=== PATIENT | female | born 1955 | race Caucasian/White ===

== ENCOUNTER 2021-02-07 02:04 | Day surgery (SDC) | payer MEDICARE, SELFPAY ==
[2021-01-28 15:07] VITALS: BMI 46.9
[2021-02-07 06:55] VITALS: BP 158/92; PULSE 79; RESP 18; TEMP 36.2; O2SAT 99; BMI 47.2
[2021-02-07] MEDS: LACTATED RINGERS 1,000 ML 150 ML IV CONT (07:31)
[2021-02-07 07:32] LABS: Glucose Point of Care 108 mg/dl (65-105)
--- NOTE | 2021-02-07 08:08 | WPDANESEPPF ---
Anes - Initial Pre Proc Eval Procedure: Operation Date: 02/07/21 08:00 Proposed Procedures p Colonoscopy - Adeel Murillo DO Date/Time: 02/07/21 08:08 Surgeon: Adeel Murillo DO Pre Op Diagnosis: positive hemasure Patient Data Age: 65 Gender: F Height: 1.52 m Weight: 109.7 kg Last Vital Signs Temp 36.2 C L 02/07/21 06:55 Pulse 79 02/07/21 06:55 Resp 18 02/07/21 06:55 BP 158/92 H 02/07/21 06:55 Pulse Ox 99 02/07/21 06:55 Allergies Allergy/AdvReac Type Severity Reaction Status Date / Time codeine Allergy Intermediate Vomiting Verified 02/07/21 07:09 Home Medications Medication Instructions Recorded Confirmed Type aspirin 81 mg tablet,delayed 81 mg PO DAILY 09/29/19 02/07/21 History release betamethasone dipropionate 0.05 % 1 applic TOPICAL DAILY 09/29/19 02/07/21 History topical cream hydrochlorothiazide 25 mg tablet 25 mg PO DAILY 09/29/19 02/07/21 History metformin 500 mg tablet 500 mg PO BID 09/29/19 02/07/21 History multivitamin 1 cap PO DAILY 09/29/19 02/07/21 History omega-3s 600 sw-cmw-wax-other 1 cap PO DAILY 09/29/19 02/07/21 History [id number] oil 1,200 mg capsule omeprazole 40 mg capsule,delayed 40 mg PO DAILY cap 09/29/19 02/07/21 History release propranolol 80 mg tablet 80 mg PO Q12H 09/29/19 02/07/21 History cholecalciferol (vitamin D3) 50 50 mcg PO DAILY 05/29/20 02/07/21 History mcg (2,000 unit) capsule levothyroxine 50 mcg PO DAILY 01/28/21 02/07/21 History Laboratory Tests 02/07/21 07:22 POC Capillary Glucose 108 mg/dl H mg/dl (65-105) Patient hx anesthesia problems: none Family hx anesthesia problems: none Results Review: All pre-operative results and documents have been reviewed as part of the pre-operative evaluation. [facility] Past Medical History Medical History Arthritis of ankle, left DJD of shoulder GERD (gastroesophageal reflux disease) History of blood transfusion 1978 HTN (hypertension) Left shoulder pain Right shoulder pain Type 2 diabetes mellitus with hyperglycemia Surgical History Surgical History History of 3 History of left knee replacement History of right knee joint replacement Hx of fusion of cervical spine Family History Family History Father Heart disease Hypertension Mother Old age Skin cancer Sibling Hypertension Heart disease Pacemaker Daughter MVA (motor vehicle accident) Other Family history of arthritis Social History Social History Smoking packs per day: 1 Smoking cigarettes per day: 20.0 Years smoked: 15 Smoking pack-years: 15.00 Smoking status: Former smoker Tobacco type: cigarettes Smoking end date: 03/23/86 Alcohol intake: never Substance use: never Living arrangements: with family Gender identity (if verbalized by the patient): Female Sexual Orientation (if Verbalized by the Patient): Straight or Heterosexual Spiritual care concerns: No Anes - Eval Final PreProcedure Day of Procedure 02/07/21 08:08 Patient weight: morbidly obese Heart: regular rate and rhythm Lungs: clear to auscultation and normal air movement Airway: Mallampati scale class II Neurological: alert and oriented Last oral intake: >/= 8 hours ASA classification: III Emergent: no Anesthetic plan: proceed Anesthesia type and monitoring: general GIVS Results Review: All pre-operative results and documents have been reviewed as part of the pre-operative evaluation. Informed Consent: The patient's anesthetic plan and its attendant risks and benefits were discussed with the patient/family/POA. Questions were solicited and answers provided to the satisfaction of the patient/family/POA.
--- NOTE | 2021-02-07 08:16 | PM.IMHP ---
H&P: HPI History of Present Illness Date/Time: 02/07/21 08:16 Chief Complaint: blood in stool Narrative: this is a 65-year-old woman who presents for colonoscopy. She had a fecal occult blood test that was positive. She denies noticing blood in her stool. She had a colonoscopy several years ago which was negative. She denies any family history of colon cancer. Review of Systems Review of Systems: All systems reviewed & are unremarkable except as noted in HPI and below Constitutional: Constitutional: Denies chills, Denies fever(s), Denies headache(s) and Denies weight loss Eyes: Eyes: Denies change in vision ENT: Denies dizziness, Denies headache(s), Denies neck mass and Denies throat swelling Cardiovascular: Cardiovascular: Denies chest pain, Denies lightheadedness and Denies dyspnea Respiratory: Respiratory: Denies cough, Denies dyspnea and Denies wheezing Gastrointestinal: Gastrointestinal: Denies abdominal pain, Denies change in bowel habits, Denies nausea and Denies vomiting Genitourinary: Genitourinary: Denies hematuria and Denies dysuria Musculoskeletal: Musculoskeletal: Reports as per HPI Integumentary/Breasts: Skin/Breast: Reports as per HPI Neurologic: Denies dizziness and Denies headache(s) Allergic/Immunologic: Allergic/Immunologic: Denies throat swelling and Denies wheezing PMFSH Past Medical History Medical History Arthritis of ankle, left DJD of shoulder GERD (gastroesophageal reflux disease) History of blood transfusion 1978 HTN (hypertension) Left shoulder pain Right shoulder pain Type 2 diabetes mellitus with hyperglycemia Surgical History Surgical History History of 3 History of left knee replacement History of right knee joint replacement Hx of fusion of cervical spine Family History Family History Father Heart disease Hypertension Mother Old age Skin cancer Sibling Hypertension Heart disease Pacemaker Daughter MVA (motor vehicle accident) Other Family history of arthritis Social History Social History Smoking packs per day: 1 Smoking cigarettes per day: 20.0 Years smoked: 15 Smoking pack-years: 15.00 Smoking status: Former smoker Tobacco type: cigarettes Smoking end date: 03/23/86 Alcohol intake: never Substance use: never Living arrangements: with family Gender identity (if verbalized by the patient): Female Sexual Orientation (if Verbalized by the Patient): Straight or Heterosexual Spiritual care concerns: No Meds Home Medications and Allergies Home Medications Medication Instructions Recorded Confirmed Type aspirin 81 mg tablet,delayed 81 mg PO DAILY 09/29/19 02/07/21 History release betamethasone dipropionate 0.05 % 1 applic TOPICAL DAILY 09/29/19 02/07/21 History topical cream hydrochlorothiazide 25 mg tablet 25 mg PO DAILY 09/29/19 02/07/21 History metformin 500 mg tablet 500 mg PO BID 09/29/19 02/07/21 History multivitamin 1 cap PO DAILY 09/29/19 02/07/21 History omega-3s 600 wr-skb-ntl-other 1 cap PO DAILY 09/29/19 02/07/21 History [id number] oil 1,200 mg capsule omeprazole 40 mg capsule,delayed 40 mg PO DAILY cap 09/29/19 02/07/21 History release propranolol 80 mg tablet 80 mg PO Q12H 09/29/19 02/07/21 History cholecalciferol (vitamin D3) 50 50 mcg PO DAILY 05/29/20 02/07/21 History mcg (2,000 unit) capsule levothyroxine 50 mcg PO DAILY 01/28/21 02/07/21 History Allergies Allergy/AdvReac Type Severity Reaction Status Date / Time codeine Allergy Intermediate Vomiting Verified 02/07/21 07:09 Vital Signs Vital Signs - 24 hr 02/07/21 06:55 Temperature 36.2 C L Pulse Rate 79 Respiratory Rate 18 Blood Pressure 158/92 H Pulse Oximetry 99 Exam Const: Gen
[2021-02-07 08:49] VITALS: BP 111/87; PULSE 70; RESP 18; O2SAT 96
[2021-02-07 08:59] VITALS: BP 127/81; PULSE 65; RESP 18; O2SAT 100
[2021-02-07 09:09] VITALS: BP 144/84; PULSE 70; RESP 18; O2SAT 92
== END 2021-02-07 09:38 | disposition home or self-care (01) ==
PROVIDERS: PCP Internal Medicine; Visit Provider Surgery
PROC: 0DJD8ZZ Inspection of Lower Intestinal Tract, Via Natural or Artificial Opening Endoscopic (ICD-10-PCS; CPT 45378; principal; 2021-02-07 08:00)
DX: R19.5 Other fecal abnormalities (principal); K57.30 Diverticulosis of large intestine without perforation or abscess without bleeding; M19.90 Unspecified osteoarthritis, unspecified site; K21.9 Gastro-esophageal reflux disease without esophagitis; I10 Essential (primary) hypertension; E11.65 Type 2 diabetes mellitus with hyperglycemia; Z87.891 Personal history of nicotine dependence; Z79.82 Long term (current) use of aspirin; Z79.84 Long term (current) use of oral hypoglycemic drugs; E66.01 Morbid (severe) obesity due to excess calories; Z68.42 Body mass index [BMI] 45.0-49.9, adult
CPT/HCPCS: 45378; 82948; J2001; J2704; J7120

== ENCOUNTER 2023-06-24 07:16 | Outpatient (RCR) | payer MEDICARE, SELFPAY ==
[2023-05-26 09:29] VITALS: BMI 47.0
== END 2023-08-10 08:39 | disposition home or self-care (01) ==
LOC: ANHWOC 07:16
PROVIDERS: PCP Physician Assistant Medical; Visit Provider Physician Assistant Medical
DX: L03.116 Cellulitis of left lower limb (principal); S81.812D Laceration without foreign body, left lower leg, subsequent encounter
CPT/HCPCS: 99212; 99213; 99214; A9270; G0463